=== PATIENT | female | born 2000 | race Caucasian/White ===

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

== ENCOUNTER → 2022-04-06 | Emergency (ER) | payer MEDICAID ==
[~2022-04-06] MED LIST: Sulfamethoxazole/Trimethoprim 800-160 MG Tab ONE
== END ==
LOC: LB.ED 13:48
DX: N39.0 Urinary tract infection, site not specified (principal); Z79.899 Other long term (current) drug therapy
CPT/HCPCS: 81001; 87086; 99283; A9270